=== PATIENT | female | born 1980 | race Caucasian/White ===

== ENCOUNTER → 2019-05-31 15:57 | Outpatient (CLI) | payer OTHER, SELFPAY ==
--- NOTE | ~2019-05-31 | CT_ITS ---
EXAMINATION: CT abdomen pelvis wo con DATE: 05/31/2019 16:39 INDICATION: Right lower quadrant abdominal pain TECHNIQUE: Computed tomography (CT) of the abdomen and pelvis was performed without intravenous contr ast. The dose-length product was 907.79 mGy-cm. Automated exposure control and iterative reconstructi on technique were employed. COMPARISON: CT dated 07/19/2017 FINDINGS: Lung bases are unremarkable. Heart size is normal. No pleural or pericardial effusion. No s ignificant vascular abnormality. No lymphadenopathy. Status post cholecystectomy. The liver, spleen, pancreas, adrenal glands and right kidney are unremar kable. There is a stable 2.2 cm left renal cyst. Nonobstructive bowel gas pattern. No abnormal pelvic masses or fluid collections. Colonic diverticula without evidence for diverticulitis. Small fat-cont aining umbilical hernia. The appendix is not positively visualized. There is no pericecal inflammato ry change to suggest appendicitis. IMPRESSION: 1. No acute abdominal abnormality. Reviewed, dictated and finalized at location A. WARE ENGINEER INTERN
--- NOTE | ~2019-05-31 | XR_ITS ---
EXAMINATION: XR hip RT min 2V DATE: 05/31/2019 16:40 INDICATION: Right lower quadriceps pain. TECHNIQUE: 2 views of right hip were obtained. COMPARISON: None. FINDINGS: Bone alignment is normal. No fracture. There is mild right hip osteoarthritis. Osteitis pub is is noted. IMPRESSION: 1. Mild right hip osteoarthritis. Reviewed, dictated and finalized at location A. YSIS EVALUATOR
== END ==
PROVIDERS: PCP Nurse Practitioner Adult Health; Visit Provider Nurse Practitioner Adult Health
DX: R10.31 Right lower quadrant pain (principal); M16.11 Unilateral primary osteoarthritis, right hip
CPT/HCPCS: 73502; 74176

== ENCOUNTER → 2020-04-28 17:13 | Outpatient (CLI) | payer OTHER, SELFPAY ==
--- NOTE | ~2020-04-28 | MM_ITS ---
EXAMINATION: MM screening tobias BI w surinder HISTORY: Screening TECHNIQUE: Craniocaudal and mediolateral oblique 3-D tomosynthesis images were obtained and synthetic 2-D images were generated. CAD analysis was submitted and interpreted. COMPARISON: Comparison to multiple prior studies sequentially, with oldest reviewed study dated 05/2017. BREAST PARENCHYMAL COMPOSITION: The breasts are heterogeneously dense, which may obscure small masses . FINDINGS: There is no evidence of suspicious mass, calcification, or architectural distortion to sugg est malignancy in either breast. There has been no suspicious interval change. IMPRESSION: 1. No mammographic evidence of malignancy. 2. Recommend routine screening mammography in one year. BI-RADS Category 1: Negative Reviewed, dictated and finalized at location A. PING MACHINE OPERATOR
== END ==
PROVIDERS: PCP Nurse Practitioner Adult Health; Visit Provider Obstetrics & Gynecology
DX: Z12.31 Encounter for screening mammogram for malignant neoplasm of breast (principal)
CPT/HCPCS: 77063; 77067

== ENCOUNTER 2020-06-09 16:34 | Outpatient (CLI) | payer OTHER, SELFPAY ==
--- NOTE | ~2020-06-09 | US_ITS ---
EXAMINATION: US venous doppler LE RT DATE: 06/09/2020 16:58 INDICATION: Right lower limb pain TECHNIQUE: Landry scale images without and with compression and Doppler images of the right lower extre mity veins were obtained. COMPARISON: 07/15/2018 FINDINGS: The right common femoral vein, profunda femoral vein, femoral vein, popliteal vein, peronea l trunk, posterior tibial veins, and greater saphenous vein are patent. IMPRESSION: 1. Patent right lower extremity veins. No evidence of deep venous thrombosis. Reviewed, dictated and finalized at location A. SHELVER
== END 2020-06-09 16:35 | disposition home or self-care (01) ==
PROVIDERS: PCP Nurse Practitioner Adult Health; Visit Provider Nurse Practitioner Adult Health
DX: M79.661 Pain in right lower leg (principal)
CPT/HCPCS: 93971

== ENCOUNTER 2021-08-22 10:50 | Emergency (ER) | payer OTHER, SELFPAY ==
[2021-08-22 10:56] VITALS: BP 139/90; PULSE 128; RESP 18; TEMP 36.4; O2SAT 97
[2021-08-22 11:31] LABS: Basophils Percent Auto 0.2 % (0.2-1.2); Eosinophils Percent Auto 0.3 % (0-4.4); Hemoglobin 14.3 g/dL (12.0-15.0); Immature Granulocyte Absolute 0.04 K/mm3 (0.00-0.031); Immature Granulocyte Percent A 0.4 % (0-0.5); Lymphocytes Absolute Auto 0.45 K/mm3 (0.9-3.2); Lymphocytes Percent Auto 4.3 % (18.3-44.2); Mean Corpuscular HGB Conc 33.3 g/dl (32-36); Mean Corpuscular Hemoglobin 28.7 pg (26-34); Mean Corpuscular Volume 86.2 fl (80-100); Mean Platelet Volume 9.8 fl (7.4-10.4); Monocytes Absolute Auto 0.3 K/mm3 (0.1-0.6); Neutrophils Absolute Auto 9.5 K/mm3 (1.3-6.7); Neutrophils Percent Auto 91.8 % (45.5-73.1); Platelet Count Result 301 k/mm3 (150-375); Red Blood Count 4.99 M/mm3 (4.2-5.4); Red Cell Distribution Width 12.6 % (11.5-14.5); White Blood Count 10.4 K/mm3 (4.5-10.0)
[2021-08-22 11:44] LABS: Alanine Aminotransferase 47 U/L (4-35); Albumin Level 5.2 g/dL (3.5-5.1); Alkaline Phosphatase 83 U/L (38-126); Anion Gap 12 mmol/L (8-16); Aspartate Amino Transferase 49 U/L (14-36); Bilirubin,Total 0.6 mg/dL (0.2-1.3); Blood Urea Nitrogen 16 mg/dL (7-17); Carbon Dioxide 21 mmol/L (22-30); Chloride 104 mmol/L (98-107); Estimated CRCL calculation 88 ml/min; Estimated Glomerular Filt Rate > 60; Glucose 115 mg/dL (65-110); Lipase 43 U/L (23-300); Potassium 3.9 mmol/L (3.4-5.0); Sodium 137 mmol/L (137-145)
[2021-08-22 12:34] VITALS: BP 134/83; PULSE 113; RESP 14; O2SAT 98
[2021-08-22 12:52] LABS: Add Urine Microscopic? YES; Appearance Urine Cloudy (Clear); Bilirubin Urine Negative (Negative); Blood Urine Negative (Negative); Color Urine Yellow (Yellow); Glucose Urine UA Negative (Negative); Ketones Urine 1+ mg/dL (Negative); Leukocyte Esterase Ur Negative LEU/UL (Negative); Mucus Urine Rare /lpf; Nitrate Urine Negative (Negative); Protein Urine Negative (Negative); Specific Grav Ur 1.021 (1.001-1.035); Squamous Epithelial Cell Urine Many /hpf (Few); Urobilinogen Urine Negative mg/dL (<2.0)
[2021-08-22] MEDS: SODIUM CHLORIDE 0.9% IV 1,000 ML 150 ML IV CONT (13:20)
[2021-08-22] MEDS: ONDANSETRON INJ 4 MG/2 ML VIAL IV PUSH ×2 (13:21→17:25)
--- NOTE | 2021-08-22 13:30 | PC.NURSE ---
per NICOLE Abbasi, give normal saline as a bolus.
--- NOTE | 2021-08-22 13:44 | ED.GENADULT ---
HPI - General Adult General Chief complaint: Abdominal Pain Stated complaint: n/v/d Time Seen by Provider: 08/22/21 12:25 History of Present Illness HPI narrative: Patient is a 41-year-old female who presents ER with complaints of vomiting and back pain. She reports back pain began yesterday and is in the mid thoracic region on the right side. It is not aggravated by movement or deep breath. Its not associated's cough or dyspnea. Denies any injury. There is no radiation of the discomfort. No alleviating factors that she is found. She also notes that last night and early this morning began having vomiting. It does not seem to be explicitly associated with the back pain. She has no urinary frequency urgency or dysuria. She denies any epigastric or right upper quadrant abdominal pain. Its not associated with eating and drinking if she has persistent nausea. Related Data Allergies Allergy/AdvReac Type Severity Reaction Status Date / Time No Known Allergies Allergy Verified 08/22/21 12:34 Review of Systems Review of Systems: All systems reviewed & are unremarkable except as noted in HPI and below Constitutional: Constitutional: Denies chills, Denies fever(s) and Denies weakness ENT: Denies nasal congestion and Denies sore throat Cardiovascular: Cardiovascular: Denies chest pain, Denies rapid heart rate and Denies radiating jaw, neck or arm pain Respiratory: Respiratory: Denies cough, Denies dyspnea and Denies wheezing Gastrointestinal: Gastrointestinal: Denies abdominal pain, Denies constipation, Denies diarrhea, Reports nausea and Reports vomiting Genitourinary: Genitourinary: Denies nocturia, Denies dysuria and Denies flank pain Musculoskeletal: Musculoskeletal: Reports back pain, Denies arthralgias and Denies muscle cramps [facility] Past Medical History Medical History (Updated 08/22/21 @ 17:20 by Yuval Abbasi MD) Anxiety Depression Hypertension Surgical History Surgical History (Updated 08/22/21 @ 13:46 by Yuval Abbasi MD) History of cholecystectomy Social History Social History (Updated 08/22/21 @ 13:46 by Yuval Abbasi MD) Smoking status: Never smoker Exam Narrative: GENERAL: Uncomfortable-appearing, obese, and in no acute distress. HEAD: Normocephalic, atraumatic. EYES: PERRL and EOMI. ENT: Mucous membranes moist. CHEST: Clear to auscultation. No respiratory distress. No reproducible chest wall tenderness. HEART: Regular rate and rhythm. Normal peripheral pulses. ABDOMEN: Soft, nontender, nondistended, normal active bowel sounds. No CVA tenderness. Back: No reproducible midline or paraspinal muscular tenderness of the thoracic or lumbar spine. No palpable spasm. EXTREMITIES: Normal range of motion. No edema. SKIN: Warm, dry, no rash. NEURO: Alert and oriented x3. PSYCH: Normal mood and affect. Course Course Emergency Course: Back pain resolved with Toradol. Nausea resolved with Zofran. Patient still has some mild tachycardia. Temperature 99.0. Suspect viral illness causing nausea. Patient may soon develop Vital Signs Vital signs: Vital Signs Temperature 97.5 F L 08/22/21 10:56 Pulse Rate 128 H 08/22/21 10:56 Respiratory Rate 18 08/22/21 10:56 Blood Pressure 139/90 08/22/21 10:56 Pulse Oximetry 97 08/22/21 10:56 Temperature 97.5 F L 08/22/21 10:56 Pulse Rate 114 H 08/22/21 15:19 Respiratory Rate 18 08/22/21 15:19 Blood Pressure 104/70 08/22/21 15:19 Pulse Oximetry 100 08/22/21 15:19 Medical Decision Making Vital Signs Vital Signs: Vital Signs Temperature 97.5 F L 08/22/21 10:56 Pulse Rate 128 H 08/22/21 10:56 Respiratory Rate 18 08/22/21 10:56 Blood Pressure 139/90 08/22/21 10:56 Pulse Oximetry 97 08/22/21 10:56 Temperature 97.5 F L 08/22/21 10:56 Pulse Rate 114 H 08/22/21 15:19 Respiratory Rate 18 08/22/21 15:19 Blood Pressure 104/70 08/22/21 15:19 Pulse Oximetry 100 08/22/21 15:19
[2021-08-22 14:02] VITALS: BP 137/85; PULSE 113; RESP 20; O2SAT 100
[2021-08-22] MEDS: KETOROLAC 30 MG/ML VIAL (*BKC) IV PUSH (14:07)
[2021-08-22 15:19] VITALS: BP 104/70; PULSE 114; RESP 18; O2SAT 100
[2021-08-22 17:20] VITALS: BP 129/79; PULSE 113; RESP 20; O2SAT 100
== END 2021-08-22 17:35 | disposition home or self-care (01) ==
PROVIDERS: Emergency Medicine; Emergency Provider Emergency Medicine; PCP Nurse Practitioner Adult Health
DX: B34.9 Viral infection, unspecified (principal); R11.0 Nausea; I10 Essential (primary) hypertension
CPT/HCPCS: 36415; 80053; 81001; 81025; 83690; 85025; 87086; 87088; 96361; 96374; 96375; 96376; 99284; J1885; J2405; J7030

== ENCOUNTER → 2021-11-06 10:23 | Outpatient (CLI) | payer OTHER, SELFPAY ==
--- NOTE | ~2021-11-06 | MM_ITS ---
EXAMINATION: MM screening tobias BI w surinder HISTORY: Screening TECHNIQUE: Craniocaudal and mediolateral oblique 3-D tomosynthesis images were obtained and synthetic 2-D images were generated. CAD analysis was submitted and interpreted. COMPARISON: Comparison to multiple prior studies sequentially, with oldest reviewed study dated 05/2017. BREAST PARENCHYMAL COMPOSITION: The breasts are extremely dense, which lowers the sensitivity of mamm ography FINDINGS: There is no evidence of suspicious mass, calcification, or architectural distortion to sugg est malignancy in either breast. There has been no suspicious interval change. IMPRESSION: 1. No mammographic evidence of malignancy. 2. Recommend routine screening mammography in one year. BI-RADS Category 1: Negative Reviewed, dictated and finalized at location A.
== END ==
PROVIDERS: PCP Nurse Practitioner Adult Health; Visit Provider Obstetrics & Gynecology
DX: Z12.31 Encounter for screening mammogram for malignant neoplasm of breast (principal)
CPT/HCPCS: 77063; 77067

== ENCOUNTER 2021-12-03 10:59 | Outpatient (CLI) | payer OTHER, SELFPAY ==
--- NOTE | 2021-12-08 18:21 | WPDHOLTEREM ---
Holter/Event Monitor Holter/Event Monitor Date of procedure: 12/08/21 Holter/Event Procedure: 48 Hr Holter Monitor Diagnosis: Palpitations Indications: 41-year-old female with palpitations Image/Tracing Quality: Good Finding: The patient was monitored for 48 hours. The underlying rhythm was sinus with an average heart rate of 86 beats per minute (range 59-162 BPM). There were 14 PVCs and 87 APCs. There was no SVT, atrial fibrillation, heart block, pauses or ventricular tachycardia. The patient had chest tightness and could not catch her breath with fatigue at 5:25 p.m. while cooking dinner at which time she was in sinus tachycardia rate 118 beats per minute. At 8:45 p.m. she had chest and left arm pain, tightness in her throat while watching TV and she was in sinus rhythm rate 82 beats per minute. At 10:35 a.m. the following morning she had chest tightness and her heart was pounding while carrying laundry upstairs at which time she was in sinus rhythm rate 88 beats per minute. She had 1 more diary entry of chest pain when her son startled her awake but she did not include any time on that. Conclusion: Fairly unremarkable Holter monitor with rare PACs and PVCs. The patient's symptoms correlated with sinus rhythm and sinus tachycardia.
== END 2021-12-03 11:00 | disposition home or self-care (01) ==
PROVIDERS: PCP Nurse Practitioner Adult Health; Visit Provider Nurse Practitioner Adult Health
DX: R00.2 Palpitations (principal)
CPT/HCPCS: 93225; 93226

== ENCOUNTER 2022-11-19 07:45 | Emergency (ER) | payer OTHER, SELFPAY ==
[2022-11-19] VITALS (27 sets, daily range): BP systolic 124–136; BP diastolic 70–84; PULSE 82–105; RESP 13–23; O2SAT 97–100
--- NOTE | ~2022-11-19 | XR_ITS ---
Clinical Indication: Chest pain PA and lateral views of the chest: Comparison: 07/18/2017 Findings: The lungs are clear, without evidence of focal consolidation or pleural effusion. Cardiome diastinal silhouette is within normal limits. Bones and soft tissues are unremarkable. Impression: Normal chest. Reviewed, dictated and finalized at location . Impression: Normal chest.
--- NOTE | 2022-11-19 07:48 | ECG_ITS ---
Measurements Intervals [place] Rate: 101 P: 38 DC: 119 QRS: 3 QRSD: 89 T: 14 QT: 329 QTc: 428 Interpretive Statements SINUS TACHYCARDIA WITH SHORT DC INTERVAL BORDERLINE T WAVE ABNORMALITY- ANT/INF LEADS BORDERLINE ECG NO PREVIOUS ECG AVAILABLE FOR COMPARISON Electronically Signed On 11-19-2022 8:23:22 CDT by Claudio Saab D.O.
[2022-11-19 08:14] LABS: Basophils Percent Auto 0.4 % (0.2-1.2); Eosinophils Absolute Auto 0.1 K/mm3 (0-0.3); Eosinophils Percent Auto 1.5 % (0-4.4); Hemoglobin 13.5 g/dL (12.0-15.0); Immature Granulocyte Absolute 0.02 K/mm3 (0.00-0.031); Immature Granulocyte Percent A 0.2 % (0-0.5); Lymphocytes Absolute Auto 1.18 K/mm3 (0.9-3.2); Mean Corpuscular HGB Conc 33.8 g/dl (32-36); Mean Corpuscular Volume 85.8 fl (80-100); Mean Platelet Volume 9.7 fl (7.4-10.4); Monocytes Absolute Auto 0.4 K/mm3 (0.1-0.6); Monocytes Percent Auto 4.4 % (2.6-8.5); Neutrophils Absolute Auto 7.3 K/mm3 (1.3-6.7); Neutrophils Percent Auto 80.5 % (45.5-73.1); Platelet Count Result 311 k/mm3 (150-375); Red Blood Count 4.66 M/mm3 (4.2-5.4); Red Cell Distribution Width 12.4 % (11.5-14.5); White Blood Count 9.1 K/mm3 (4.5-10.0)
[2022-11-19 08:23] LABS: INR 0.9; Prothrombin Time 12.4 Seconds (11.1-14.7)
[2022-11-19 08:24] LABS: Partial Thromboplastin Time 30.8 SECONDS (22.3-36.8)
[2022-11-19 08:42] LABS: Troponin I < 0.012 ng/mL (0.000-0.034)
[2022-11-19] MEDS: ONDANSETRON INJ 4 MG/2 ML VIAL IV PUSH (08:48)
[2022-11-19] MEDS: BELLADONNA ALK/PHENOB ELIX 10 ML, MAG HYDROX/ALUMINUM HYD/SIMETH 30 ML, LIDOCAINE HCL 2... PO (08:48)
[2022-11-19] MEDS: FAMOTIDINE 20 MG TABLET PO (08:48)
[2022-11-19] MEDS: SODIUM CHLORIDE 0.9% IV 2,000 ML 999 ML IV CONT (08:48)
[2022-11-19 09:32] LABS: Alanine Aminotransferase 23 U/L (6-35); Albumin Level 4.3 g/dL (3.5-5.1); Alkaline Phosphatase 63 U/L (38-126); Anion Gap 7 mmol/L (8-16); Aspartate Amino Transferase 25 U/L (14-36); Bilirubin,Total 0.4 mg/dL (0.2-1.3); Blood Urea Nitrogen 14 mg/dL (7-17); Calcium 8.6 mg/dL (8.4-10.2); Carbon Dioxide 25 mmol/L (22-30); Chloride 106 mmol/L (98-107); Estimated CRCL calculation 88 ml/min; Estimated Glomerular Filt Rate > 60; Glucose 94 mg/dL (65-110); Lipase 63 U/L (23-300); Potassium 4.5 mmol/L (3.4-5.0); Sodium 138 mmol/L (137-145)
--- NOTE | 2022-11-19 09:45 | ED.CHESTPAIN ---
HPI - Chest Pain General Chief Complaint: Chest Pain Stated Complaint: Chest pain Time Seen by Provider: 11/19/22 07:53 History of Present Illness HPI narrative: This is a 42-year-old female with history of anxiety depression, presents emergency department complaining of burning substernal chest pain beginning approximately 7 hours prior to arrival. States this is associated with nausea and vomiting twice without blood. She states she has felt pain like this before but this has lasted longer than previous. She denies lightheadedness, loss of consciousness, weakness or numbness. Related Data Home Medications Medication Instructions Recorded Confirmed losartan 25 mg tablet 25 mg PO DAILY 08/24/21 11/09/22 Allergies Allergy/AdvReac Type Severity Reaction Status Date / Time No Known Allergies Allergy Verified 11/19/22 08:43 Review of Systems Review of Systems: CONSTITUTIONAL: Denies fever, chills, or sweats. CARDIOVASCULAR: Substernal chest burning denies palpitations, or edema. RESPIRATORY: Denies cough or dyspnea. GASTROINTESTINAL: Denies abdominal pain, nausea, vomiting, or diarrhea. GENITOURINARY: Denies dysuria or hematuria. SKIN: Denies rash or itching. MUSCULOSKELETAL: Denies back pain, joint pain, or myalgia. NEUROLOGIC: Denies headache, numbness, dizziness, or weakness. PSYCHIATRIC: Denies anxiety or depression. [facility], [facility] Past Medical History Medical History Anxiety Depression Hypertension Thyroid disease Surgical History Surgical History History of cholecystectomy History of orthopedic surgery tibia and fibula repair right leg Family History Family History Father Congestive heart failure Heart disease Hypertension Sibling Alcoholism Social History Social History Smoking status: Never smoker Smoking end date: 05/02/07 Alcohol intake: never Substance use: never Substance use type: does not use Lack of Transportation: No Lack of Food: Never True Current Housing: I Have Housing Concerned About Future Housing: No Difficulty Paying Gas/Electric Bills: No Difficulty Paying for Meds: No Currently Unemployed: No Education: Associate Degree Living arrangements: with family Occupation/Education: occupation Additional occupation/education comments: stay at home mom Gender identity (if verbalized by the patient): Female Sexual Orientation (if Verbalized by the Patient): Straight or Heterosexual Exam Narrative: GENERAL: Well-developed, well-nourished, and in no acute distress. HEAD: Normocephalic, atraumatic. EYES: PERRLA and EOMI. ENT: Nares clear, no rhinorrhea or epistaxis. Mucous membranes moist. Oropharynx without tonsillar hypertrophy exudate or other lesions. NECK: Supple. No adenopathy or masses. No JVD CHEST: Clear to auscultation. No respiratory distress. No wheezes rales or rhonchi HEART: Regular rate and rhythm. No murmur heard. Normal peripheral pulses. ABDOMEN: Soft, nontender, nondistended, normal active bowel sounds. EXTREMITIES: Normal range of motion. No edema. SKIN: Warm, dry, no rash. NEURO: No focal deficits. Alert and oriented x3. PSYCH: Normal mood and affect. Course Course Emergency Course: 09:45 - On reevaluation, the patient states her pain and nausea is improved. Initial troponin negative, heart score 1. My suspicion for ACS is low at this time. Chest x-ray unremarkable. Chemistries unremarkable. CBC unremarkable. test pending. 10:45 - test negative. Will discharge with an oral PPI and recommendation for primary care follow-up. Discussed return and emergency precautions including signs/symptoms of ACS and respiratory distress. The patient voiced understanding and is com
[2022-11-19 10:40] LABS: Beta HCG Quantitative < 2.39 mIU/ML
== END 2022-11-19 11:35 | disposition home or self-care (01) ==
PROVIDERS: Emergency Provider Preventive Medicine Aerospace Medicine; PCP Family Medicine
DX: R07.89 Other chest pain (principal); I10 Essential (primary) hypertension; E07.9 Disorder of thyroid, unspecified; Z87.891 Personal history of nicotine dependence; Z90.49 Acquired absence of other specified parts of digestive tract; R00.0 Tachycardia, unspecified; R94.31 Abnormal electrocardiogram [ECG] [EKG]
CPT/HCPCS: 36415; 71046; 80053; 83690; 84484; 84702; 85025; 85610; 85730; 93005; 96361; 96374; 99284; A9270; J2405; J7030

== ENCOUNTER 2023-02-02 08:37 | Outpatient (CLI) | payer OTHER, SELFPAY ==
--- NOTE | ~2023-02-02 | XR_ITS ---
XR knee LT 3V DATE: 02/02/2023 09:00 INDICATION: Left knee pain TECHNIQUE: [place] and standing AP and lateral views COMPARISON: None FINDINGS: No fracture or dislocation or joint effusion. Joint spaces are well preserved. No radiopaqu e intra-articular loose body or chondrocalcinosis. No periosteal reaction or bone destruction. IMPRESSION: Negative Reviewed, dictated and finalized at location B. IMPRESSION: Negative
== END 2023-02-02 08:38 ==
PROVIDERS: PCP Physician Assistant; Visit Provider Physician Assistant
DX: M25.562 Pain in left knee (principal)
CPT/HCPCS: 73562

== ENCOUNTER → 2023-02-07 11:19 | Outpatient (CLI) | payer OTHER, SELFPAY ==
--- NOTE | ~2023-02-07 | MM_ITS ---
EXAMINATION: MM screening tobias BI w surinder HISTORY: Screening mammogram TECHNIQUE: Craniocaudal and mediolateral oblique 3-D tomosynthesis images were obtained and synthetic 2-D images were generated. CAD analysis was submitted and interpreted. COMPARISON: 11/06/2021, 04/28/2020 bilateral screening mammogram examinations 02/16/2019 diagnostic right mammogram and limited right breast ultrasound examination BREAST PARENCHYMAL COMPOSITION: The breasts are heterogeneously dense, which may obscure small masses . FINDINGS: There is no evidence of suspicious mass, calcification, or architectural distortion to sugg est malignancy in either breast. There has been no suspicious interval change. IMPRESSION: 1. No mammographic evidence of malignancy. 2. Recommend routine screening mammography in one year. BI-RADS Category 1: Negative Reviewed, dictated and finalized at location A.
== END ==
PROVIDERS: PCP Physician Assistant; Visit Provider Obstetrics & Gynecology
DX: Z12.31 Encounter for screening mammogram for malignant neoplasm of breast (principal)
CPT/HCPCS: 77063; 77067

== ENCOUNTER 2023-03-07 10:06 | Outpatient (CLI) | payer OTHER, SELFPAY ==
--- NOTE | ~2023-03-07 | US_ITS ---
EXAMINATION: US soft tissue LE DATE: 03/08/2023 07:08 INDICATION: Left knee pain TECHNIQUE: Multiple grayscale and Doppler ultrasound images of the posterior left knee were obtained. COMPARISON: None FINDINGS/IMPRESSION: No Eugene's cyst or other abnormal masses or fluid collections identified at the posterior left knee. Reviewed, dictated and finalized at location A. R SHOVEL MECHANIC
== END 2023-03-07 10:07 | disposition home or self-care (01) ==
PROVIDERS: PCP Physician Assistant; Visit Provider Nurse Practitioner Family
DX: M25.562 Pain in left knee (principal)
CPT/HCPCS: 76882

== ENCOUNTER 2023-03-19 10:09 | Outpatient (CLI) | payer OTHER, SELFPAY ==
--- NOTE | ~2023-03-19 | MR_ITS ---
EXAMINATION: MR knee LT wo con DATE: 03/19/2023 11:16 INDICATION: initial posterior left knee pain x6mos becoming generalized TECHNIQUE: Magnetic resonance imaging (MRI) of the left knee was performed without intravenous contra st. Sequences included axial PD-weighted FS FSE, coronal PD-weighted FSE and PD-weighted FS FSE, sagi ttal PD-weighted FSE, and sagittal T2-weighted FS FSE. COMPARISON: X-ray left knee 02/02/2023. FINDINGS: Medial compartment: Meniscus intact. Mild diffuse cartilage thinning. Lateral compartment: Meniscus intact. Mild diffuse cartilage thinning. Patellofemoral compartment: Full-thickness cartilage fissure along the median facet. Retinacula intact. Ligaments and tendons: The ACL, PCL, MCL, and LCL are intact. Remaining flexor and extensor tendons are intact. Fluid: No significant fluid collection. Osseous/other: No suspicious focal or diffuse marrow signal. IMPRESSION: Full-thickness cartilage fissure along the median facet. Mild diffuse cartilage thinning in the medial and lateral compartments Reviewed, dictated and finalized at location K. LATORY COORDINATOR
== END 2023-03-19 10:10 ==
PROVIDERS: PCP Physician Assistant; Visit Provider Nurse Practitioner Family
DX: M25.562 Pain in left knee (principal); G89.29 Other chronic pain
CPT/HCPCS: 73721

== ENCOUNTER 2023-04-21 21:41 | Observation (INO) | payer OTHER, SELFPAY ==
--- NOTE | ~2023-04-21 | XR_ITS ---
EXAMINATION: XR chest 2V Exam Date/Time: 04/21/2023 22:40 COLLECTION SYSTEMS TECHNICIAN HISTORY: PALPITATIONS, LEFT SIDED NECK AND SHOULDER PAIN Comparison: 11/19/2022. RESULT: Lines, tubes, and devices: None. Lungs and pleura: Clear. Cardiomediastinal silhouette: Stable. Other: No acute osseous or upper abdominal finding. IMPRESSION: No acute cardiopulmonary process. Reviewed, dictated and finalized at location K. ECTION SYSTEMS TECHNICIAN
[2023-04-21 21:45] VITALS: BP 144/97; PULSE 99; RESP 15; TEMP 36.6; O2SAT 100
--- NOTE | 2023-04-21 21:48 | ECG_ITS ---
Measurements Intervals [place] Rate: 182 P: MI: 0 QRS: 12 QRSD: 92 T: -3 QT: 240 QTc: 418 Interpretive Statements ATRIAL FIBRILLATION WITH RAPID VENTRICULAR RESPONSE NONSPECIFIC ST & T-WAVE ABNORMALITY ABNORMAL RHYTHM ECG COMPARED TO ECG 11/19/2022 07:51:55 ATRIAL FIBRILLATION REPLACES SINUS RHYTHM Electronically Signed On 04-22-2023 15:03:46 MANAGING PARTNER by Ziggy Rosenthal M.D.
[2023-04-21] MEDS: SODIUM CHLORIDE 0.9% IV 1,000 ML 999 ML IV CONT (22:06)
[2023-04-21] MEDS: dilTIAZem HCl INJ 25 MG/5 ML VIAL 10 MG IV PUSH ×2 (22:06→22:15)
[2023-04-21] MEDS: ASPIRIN 81 MG CHEWABLE TABLET 324 MG PO (22:06)
--- NOTE | 2023-04-21 22:10 | ED.ARRPALP ---
HPI - Arrhythmia/Palpitations General Chief Complaint: Arrhythmia/Palpitations Stated Complaint: palpations Time Seen by Provider: 04/21/23 22:00 History of Present Illness HPI narrative: [age] old female presenting to the emergency department for evaluation of rapid heart rate. Patient does have a history of heart palpitations that are typically short lasting. Patient has had follow-up with Cardiology and has had a Holter monitor which found no abnormalities. Patient states that approximately 1 hour prior to arrival patient had onset rapid heart rate. Patient reports some radiation of pain to her left shoulder. Related Data Home Medications Medication Instructions Recorded Confirmed losartan 25 mg tablet 25 mg PO DAILY 08/24/21 04/22/23 cholecalciferol (vitamin D3) 50 50 mcg PO DAILY 12/23/22 04/22/23 mcg (2,000 unit) capsule clonazepam 0.5 mg tablet 0.25 mg PO QHS PRN Anxiety 12/23/22 04/22/23 mecobalamin (vitamin B12) 500 mcg 500 mcg PO DAILY 12/23/22 04/22/23 chewable tablet omega-3 fatty acids 500 mg capsule 500 mg PO DAILY 12/23/22 04/22/23 Allergies Allergy/AdvReac Type Severity Reaction Status Date / Time No Known Allergies Allergy Verified 02/22/23 10:10 Review of Systems Review of Systems: All systems reviewed & are unremarkable except as noted in HPI and below PMFSH Past Medical History Medical History (Updated 04/22/23 @ 04:54 by Abdullahi Altman MD) Anxiety Arthritis Eugene's cyst of knee Depression History of endometrial biopsy 12/09/2022 Hypertension Migraine Thyroid disease Surgical History Surgical History History of cholecystectomy History of orthopedic surgery tibia and fibula repair right leg Family History Family History Father Congestive heart failure Heart disease Hypertension Cerebrovascular accident Sibling Alcoholism Grandparent Diabetes mellitus Alcoholism Social History Social History Smoking status: Never smoker Second hand tobacco smoke exposure: No Smoking end date: 05/02/07 Alcohol intake: never Substance use: never Substance use type: does not use Lack of Transportation: No Lack of Food: Never True Current Housing: I Have Housing Concerned About Future Housing: No Difficulty Paying Gas/Electric Bills: No Difficulty Paying for Meds: No Currently Unemployed: No Education: Associate Degree Living arrangements: with family Occupation/Education: occupation Additional occupation/education comments: stay at home mom Gender identity (if verbalized by the patient): Female Sexual Orientation (if Verbalized by the Patient): Straight or Heterosexual Exam Narrative: APPEARANCE: Well appearing, no pain, no distress, well-nourished. HEAD: normocephalic, atraumatic. EYES: PERRLA/EOMI, conjunctivae clear. NOSE: Normal no drainage EARS:TMS clear with good light reflex. THROAT: Pharynx clear, no exudate. NECK: Supple. No adenopathy, no masses. RESPIRATORY: Airway patent, respirations nonlabored. Clear to auscultation bilaterally, no rales, rhonchi, wheezing. CARDIOVASCULAR: AFib with RVR ABDOMINAL: Soft, nontender, nondistended, normal bowel sounds MUSCULOSKELETAL: Moves all extremities. Strength/ROM intact, No edema, No calf tenderness. NEURO: Alert. Cranial nerves II through XII intact. grossly intact SKIN: Warm, dry. Normal Color Course Course Emergency Course: 42-year-old female presenting to the emergency department for evaluation for tachycardia. Patient was an AFib with RVR with heart rate up to 215 on initial presentation. Patient's heart rate did improve with Cardizem bolus and infusion. No significant electrolyte abnormalities. Patient reported that her chest pain was improving has her heart rate improved. Chest x-ray showed no acute cardio
[2023-04-21 22:13] LABS: Basophils Absolute Auto 0.1 K/mm3 (0.0-0.1); Basophils Percent Auto 0.5 % (0.2-1.2); Eosinophils Absolute Auto 0.4 K/mm3 (0-0.3); Eosinophils Percent Auto 4.1 % (0-4.4); Hematocrit 41.2 % (37.0-47.0); Hemoglobin 13.3 g/dL (12.0-15.0); Immature Granulocyte Absolute 0.03 K/mm3 (0.00-0.031); Immature Granulocyte Percent A 0.3 % (0-0.5); Lymphocytes Absolute Auto 2.83 K/mm3 (0.9-3.2); Lymphocytes Percent Auto 30.6 % (18.3-44.2); Mean Corpuscular HGB Conc 32.3 g/dl (32-36); Mean Corpuscular Hemoglobin 28.2 pg (26-34); Mean Corpuscular Volume 87.5 fl (80-100); Mean Platelet Volume 9.7 fl (7.4-10.4); Monocytes Absolute Auto 0.6 K/mm3 (0.1-0.6); Monocytes Percent Auto 6.4 % (2.6-8.5); Neutrophils Absolute Auto 5.4 K/mm3 (1.3-6.7); Neutrophils Percent Auto 58.1 % (45.5-73.1); Platelet Count Result 378 k/mm3 (150-375); Red Blood Count 4.71 M/mm3 (4.2-5.4); Red Cell Distribution Width 12.9 % (11.5-14.5); White Blood Count 9.2 K/mm3 (4.5-10.0)
[2023-04-21 22:15] VITALS: BP 139/88; BP 156/78; PULSE 171; PULSE 175; RESP 20; O2SAT 100
[2023-04-21] MEDS: dilTIAZem 100 MG/100 ML 100 MG/100 ML BAG IV CONT (22:15)
[2023-04-21 22:24] LABS: Alanine Aminotransferase 33 U/L (6-35); Albumin Level 4.6 g/dL (3.5-5.1); Alkaline Phosphatase 70 U/L (38-126); Anion Gap 9 mmol/L (8-16); Aspartate Amino Transferase 38 U/L (14-36); Bilirubin,Total 0.3 mg/dL (0.2-1.3); Blood Urea Nitrogen 16 mg/dL (7-17); Calcium 9.4 mg/dL (8.4-10.2); Carbon Dioxide 23 mmol/L (22-30); Chloride 107 mmol/L (98-107); Estimated CRCL calculation 86 ml/min; Estimated Glomerular Filt Rate > 60; Glucose 137 mg/dL (65-110); Lipase 155 U/L (23-300); Potassium 3.6 mmol/L (3.4-5.0); Sodium 139 mmol/L (137-145)
[2023-04-21 22:25] LABS: INR 0.9; Prothrombin Time 11.9 Seconds (11.1-14.7)
[2023-04-21 22:35] LABS: Troponin I < 0.012 ng/mL (0.000-0.034)
[2023-04-21 22:36] VITALS: BP 156/78; BP 160/82; PULSE 180; PULSE 186; RESP 23; O2SAT 100
[2023-04-21 23:06] VITALS: BP 135/98; PULSE 194
[2023-04-21 23:13] VITALS: PULSE 172
[2023-04-21 23:14] VITALS: BP 135/98; PULSE 176; RESP 14; TEMP 36.3; O2SAT 100
[2023-04-21 23:19] LABS: Magnesium 2.1 mg/dL (1.6-2.3)
[2023-04-21] MEDS: SODIUM CHLORIDE 0.9% IV 1,000 ML 125 ML IV CONT (23:58)
[2023-04-22] VITALS (20 sets, daily range): BP systolic 100–138; BP diastolic 47–81; PULSE 73–142; RESP 15–20; TEMP 36.2–36.9; O2SAT 98–100; BMI 36.1
--- NOTE | 2023-04-22 00:22 | PC.NURSE ---
Upon transporting patient to IMU. Patients heart rate dropped down to 113 via portable site monitor. Notified EDP Dr. Altman and IMU nurse Cheri.
[2023-04-22] MEDS: dilTIAZem HCl INJ 25 MG/5 ML VIAL 20 MG IV PUSH (01:15)
--- NOTE | 2023-04-22 01:25 | ADMGEN ---
This patient, Veronique Barnes, was admitted to IMU Room 232-01. Patient/family oriented to hospital policies and general routines including ID bracelet, bed and alarms, visiting hours, pain management, procedures, bathroom and other care routines, personal items, smoking policy, room service/diet, and visiting hours. Information on how to activate the Rapid Response Team has been discussed. Patient/Family are encouraged to report perceived risks to care and to ask questions if they do not understand what they are told or what they should do.
[2023-04-22] MEDS: dilTIAZem 100 MG/100 ML 100 MG/100 ML BAG 15 MG IV CONT (02:01)
[2023-04-22 05:01] LABS: Troponin I < 0.012 ng/mL (0.000-0.034)
[2023-04-22 05:02] LABS: Troponin I < 0.012 ng/mL (0.000-0.034)
[2023-04-22] MEDS: SODIUM CHLORIDE 0.9% IV 1,000 ML 125 ML IV CONT (06:49)
--- NOTE | 2023-04-22 07:41 | PM.IMHP ---
H&P: HPI History of Present Illness Date/Time: 04/22/23 07:41 Chief Complaint: Palpitation Narrative: 42 years old lady with history of hypertension, anxiety, present ED with a chief complaint of palpitation. Patient had history of palpitation, previous Holter study shows no abnormality. Patient started to have palpitation yesterday evening again. Patient also has some chest pain associated with palpitation radiating to shoulder. Patient came to ED for evaluation. In the ED, patient was found have AFib RVR. Heart rate about 215 on arrival appear. I read EKG, eKG showed AFib RVR. I also reviewed the labs,, troponin negative, total cholesterol 208, LDL 132. Patient denies fever, chills, headache, focal weakness, and pain, nausea vomiting diarrhea dysuria. Patient received Cardizem drip, heart rate controlled, we admit patient for further evaluation and management Review of Systems Review of Systems: RS negative except above PMFSH Past Medical History Medical History (Updated 04/22/23 @ 07:51 by Jhoan Shen MD) Anxiety Arthritis Eugene's cyst of knee Depression History of endometrial biopsy 12/09/2022 Hypertension Migraine Thyroid disease Surgical History Surgical History History of cholecystectomy History of orthopedic surgery tibia and fibula repair right leg Family History Family History Father Congestive heart failure Heart disease Hypertension Cerebrovascular accident Sibling Alcoholism Grandparent Diabetes mellitus Alcoholism Social History Social History Smoking status: Never smoker Second hand tobacco smoke exposure: No Smoking end date: 05/02/07 Alcohol intake: never Substance use: never Substance use type: does not use Do You Feel Safe in your Home?: Yes Lack of Transportation: No Lack of Food: Never True Current Housing: I Have Housing Concerned About Future Housing: No Difficulty Paying Gas/Electric Bills: No Difficulty Paying for Meds: No Currently Unemployed: No Education: High School Diploma/GED Difficulty w/ Childcare or Family Care: No Living arrangements: with family Occupation/Education: occupation Additional occupation/education comments: stay at home mom Gender identity (if verbalized by the patient): Female Sexual Orientation (if Verbalized by the Patient): Straight or Heterosexual Spiritual care concerns: No Meds Home Medications and Allergies Home Medications Medication Instructions Recorded Confirmed Type losartan 25 mg tablet 25 mg PO DAILY 08/24/21 04/22/23 History cholecalciferol (vitamin D3) 50 50 mcg PO DAILY 12/23/22 04/22/23 History mcg (2,000 unit) capsule mecobalamin (vitamin B12) 500 mcg 500 mcg PO DAILY 12/23/22 04/22/23 History chewable tablet omega-3 fatty acids 500 mg capsule 500 mg PO DAILY 12/23/22 04/22/23 History Allergies Allergy/AdvReac Type Severity Reaction Status Date / Time No Known Allergies Allergy Verified 02/22/23 10:10 Vital Signs Vital Signs - 24 hr 04/21/23 21:45 04/21/23 22:15 04/21/23 22:36 Temperature 97.8 F Pulse Rate 99 171 H 180 H Respiratory Rate 15 Blood Pressure 144/97 H 139/88 156/78 H Pulse Oximetry 100 Oxygen Delivery Room Air 04/21/23 22:15 04/21/23 22:36 04/21/23 23:06 Temperature Pulse Rate 175 H 186 H 194 H Respiratory Rate 20 23 H Blood Pressure 156/78 H 160/82 H 135/98 H Pulse Oximetry 100 100 Oxygen Delivery 04/21/23 23:13 04/21/23 23:14 04/22/23 00:02 Temperature 97.4 F L Pulse Rate 172 H 176 H 142 H Respiratory Rate 14 20 Blood Pressure 135/98 H 117/81 Pulse Oximetry 100 98 Oxygen Delivery 04/22/23 02:01 04/22/23 00:20 04/22/23 02:00 Temperature 97.1 F L Pulse Rate 132 H 134 H 132 H Respiratory Rate 16 16 Blood Pressure 131/7
[2023-04-22] MEDS: CYANOCOBALAMIN 500 MCG TABLET PO (10:48)
[2023-04-22] MEDS: CHOLECALCIFEROL 1,000 UNITS TABLET 2000 UNITS PO (10:48)
[2023-04-22] MEDS: ACETAMINOPHEN 325 MG TABLET 650 MG PO ×2 (10:48→16:04)
[2023-04-22] MEDS: ATORVASTATIN 40 MG TABLET PO (10:48)
[2023-04-22] MEDS: ENOXAPARIN 40 MG/0.4 ML SYRINGE SUB-Q (11:00)
--- NOTE | 2023-04-22 11:55 | PM.CNCAR ---
Assessment and Plan Assessment and plan (1) New onset a-fib: Code(s): I48.91 - Unspecified atrial fibrillation Status: Acute (2) Atrial fibrillation with RVR: Code(s): I48.91 - Unspecified atrial fibrillation Status: Acute Plan This is a 42-year-old lady who appears to have lone atrial fibrillation she has had extensive noninvasive workup including echoes and cardiac MRIs as well as nuclear stress test with no evidence of structural or ischemic heart disease. She has had intermittent palpitations for a number of years and now has the diagnosis of atrial fibrillation established. Her heart rate has been very well controlled with diltiazem but she persistent atrial fib at this time. I would like to recommend a cardioversion procedure to restore sinus rhythm at we after which I would start her on beta-celio and apixaban treatment. Her chads Vasc score is 2 and so she should be anticoagulated. Hopefully she will be stable and feel well after cardioversion at which time she could probably be discharged later this evening. She has a follow-up appointment to see my partner, Dr. Reid next month Ziggy Rosenthal MD [facility] History of Present Illness History of Present Illness Consult date/time: 04/22/23 11:55 Reason For Visit: Afib with RVR Narrative: This is a 42-year-old woman I am seeing at the request of the hospitalist for assistance with the management and evaluation of atrial fibrillation. The patient is known to my partner, Dr. Reid for a number of years with office follow-up with complaints of palpitations. In the past on a couple of occasions there was suspicion that she might have atrial fibrillation because of information from her Apple watch but that has never been documented. In any event she has been known in the past to have PVCs but no other arrhythmias. The patient last night noted the onset of irregular tachycardia and palpitations which is a symptom she has had off and on again for a number of years but instead of being transient it sustained. She came to the emergency department where she was in atrial fib with a rapid ventricular response and was otherwise hemodynamically stable. She was complaining of some chest pain as well. She started on intravenous diltiazem which of course controlled her heart rhythm her heart rate is now in the 80s and 90s although she still is in atrial fibrillation. She at this time offers no other complaints and is comfortable. Over the last couple of years since she has seen a my partner in consultation she has had a unremarkable echocardiogram performed, negative stress test for evidence of coronary disease as well as a negative cardiac MRI. She was last seen in the office for follow-up in December of this year which time she was stable. She takes losartan for hypertension as well. In the past to treat her a palpitation she had been placed on some metoprolol which she says she had a hard time tolerating because of the insomnia. Review of Systems Constitutional: Constitutional: Reports no additional constitutional complaints Eyes: Eyes: Reports no additional eye complaints ENT: Reports system reviewed and no additional complaints, except as documented Cardiovascular: Cardiovascular: Reports as per HPI Respiratory: Respiratory: Reports no additional respiratory complaints Gastrointestinal: Gastrointestinal: Reports no additional gastrointestinal complaints Musculoskeletal: Musculoskeletal: Reports no additional musculoskeletal complaints Integumentary/Breasts: Skin/Breast: Reports system reviewed and no additional complaints, except as docu Neurologic: Reports system reviewed and no additional complaints, except as documented Endocrine: Endocrine: Reports no additional endocrine complaints Hematologic/Lymphatic: Hematologic/Lymphatic: Reports no additional hematologic/lymphatic complaints Allergic/Immunologic: Allergic/Immunologic: Reports no heaven
--- NOTE | 2023-04-22 12:20 | WPDMODSED ---
Moderate Sedation Note-Pt Data Patient Data Diagnosis: New onset atrial fibrillation Present Complaint: palpitations Procedure to be performed/Plan: DC cardioversion Allergies Allergy/AdvReac Type Severity Reaction Status Date / Time No Known Allergies Allergy Verified 02/22/23 10:10 Home Medications Medication Instructions Recorded Confirmed Type losartan 25 mg tablet 25 mg PO DAILY 08/24/21 04/22/23 History cholecalciferol (vitamin D3) 50 50 mcg PO DAILY 12/23/22 04/22/23 History mcg (2,000 unit) capsule mecobalamin (vitamin B12) 500 mcg 500 mcg PO DAILY 12/23/22 04/22/23 History chewable tablet omega-3 fatty acids 500 mg capsule 500 mg PO DAILY 12/23/22 04/22/23 History Current Medications: Active Medications Acetaminophen (Acetaminophen 325 Mg Tablet) 650 mg PO Q4H PRN PRN Reason: Mild Pain (1-3) or Fever Last Admin: 04/22/23 10:48 Dose: 650 mg Apixaban (Apixaban 5 Mg Tablet) 5 mg PO Q12HR [facility] Atorvastatin Calcium (Atorvastatin 40 Mg Tablet) 40 mg PO DAILY [facility] Last Admin: 04/22/23 10:48 Dose: 40 mg Cyanocobalamin (Cyanocobalamin 500 Mcg Tablet) 500 mcg PO DAILY [facility] Last Admin: 04/22/23 10:48 Dose: 500 mcg Sodium Chloride (Normal Saline Iv) 1,000 mls @ 125 mls/hr IV CONT .Q8H [facility] Last Admin: 04/22/23 06:49 Dose: 125 mls/hr Diltiazem HCl (Cardizem 100 Mg/100 Ml) 100 mg in 100 mls @ 15 mls/hr IV CONT .Q6H40M [facility] Last Admin: 04/22/23 02:01 Dose: 15 mg/hr, 15 mls/hr Ondansetron HCl (Ondansetron Inj 4 Mg/2 Ml Vial) 4 mg IV PUSH Q4H PRN PRN Reason: Nausea Perflutren Lipid Microsphere (Perflutren Lipid Microspheres 1.5 Ml Vial Diluted To 10 Ml Total Volume) 0 ml IV PUSH ONCE PRN; Protocol PRN Reason: adequate visualization Stop: 04/25/23 08:01 Vitamin D (Cholecalciferol 1,000 Units Tablet) 2,000 units PO DAILY [facility] Last Admin: 04/22/23 10:48 Dose: 2,000 units Sedation/Anesthesia: No previous sedation/anesthesia problems (including family history). [facility] Past Medical History Medical History (Updated 04/22/23 @ 07:51 by Jhoan Shen MD) Anxiety Arthritis Eugene's cyst of knee Depression History of endometrial biopsy 12/09/2022 Hypertension Migraine Thyroid disease Surgical History Surgical History History of cholecystectomy History of orthopedic surgery tibia and fibula repair right leg Family History Family History Father Congestive heart failure Heart disease Hypertension Cerebrovascular accident Sibling Alcoholism Grandparent Diabetes mellitus Alcoholism Social History Social History Smoking status: Never smoker Second hand tobacco smoke exposure: No Smoking end date: 05/02/07 Alcohol intake: never Substance use: never Substance use type: does not use Do You Feel Safe in your Home?: Yes Lack of Transportation: No Lack of Food: Never True Current Housing: I Have Housing Concerned About Future Housing: No Difficulty Paying Gas/Electric Bills: No Difficulty Paying for Meds: No Currently Unemployed: No Education: High School Diploma/GED Difficulty w/ Childcare or Family Care: No Living arrangements: with family Occupation/Education: occupation Additional occupation/education comments: stay at home mom Gender identity (if verbalized by the patient): Female Sexual Orientation (if Verbalized by the Patient): Straight or Heterosexual Spiritual care concerns: No Mod Sed Physical Exam Physical Exam Pre Procedural Exam: Normal: Throat, Airway, Lungs, Heart Size, Neuro Exam and Extremities and Variation: Appearance ( pleasant overweight white female no distress), Heart Rate and Heart Rhythm ( irregularly irregular) Hours since solid foods: 12 Hours since liquid intake: 12 Mallampati Classification: class II Internal Medicine - PN: Obj Da Vit
--- NOTE | 2023-04-22 12:37 | ECG_ITS ---
Measurements Intervals [place] Rate: 75 P: 15 OK: 131 QRS: 33 QRSD: 95 T: 5 QT: 407 QTc: 456 Interpretive Statements SINUS RHYTHM NONSPECIFIC T-WAVE ABNORMALITY BORDERLINE ECG COMPARED TO ECG 04/21/2023 21:53:47 SINUS RHYTHM REPLACES ATRIAL FIBRILLATION Electronically Signed On 04-22-2023 15:23:33 MATERIAL SPECIALIST by Ziggy Rosenthal M.D.
--- NOTE | 2023-04-22 12:43 | WPDCARDPROC ---
Cardiac Cath Procedure Note Date of procedure:: 04/22/23 Performing physician:: Ziggy Rosenthal MD Indication:: new onset persistent atrial fibrillation Brief clinical history:: this is a 42-year-old lady with history of palpitations for several years. Atrial fib has previously been suspected but not confirmed. She presented to the emergency room last evening with persistent palpitations AFib with very rapid ventricular response. She has been given diltiazem to control her heart rate. Previous workup for structural and ischemic heart disease including echo, cardiac MRI stress testing have been negative. An attempt at restoring sinus rhythm electrically has now been recommend Procedure Procedure performed:: DC cardioversion Sedation/Medication given:: intravenous propofol total dosage of 80 mg Estimated blood loss:: none Procedure note:: patient was brought to the cardiac tin can laborer holding area where defibrillator patches were placed in the AP position. She was in the supine position with IV access in the left upper extremity. She was then sedated with id of boluses of propofol a total dosage of 80 mg by provided excellent sedation. She was then counter shocked in a synchronized fashion with 200 joules x1 shock which restored normal sinus rhythm. Findings:: As above Conclusion:: successful DC cardioversion terminating atrial fibrillation restoring sinus rhythm using 200 joules x1 shock patient is now being treated with metoprolol and apixaban. Ziggy Rosenthal MD [facility]
--- NOTE | 2023-04-22 15:52 | PM.DS ---
DS: Admitting Diagnosis Discharge Date 04/22/23 Admitting Diagnosis New onset AFib RVR Hypertension Obesity Possible MO Hyperlipidemia DS: Discharge Diagnosis Discharge Diagnosis (1) New onset a-fib: Code(s): I48.91 - Unspecified atrial fibrillation Status: Acute (2) Atrial fibrillation with RVR: Code(s): I48.91 - Unspecified atrial fibrillation Status: Acute (3) Hypertension: Code(s): I10 - Essential (primary) hypertension Status: Acute (4) Hyperlipidemia: Code(s): E78.5 - Hyperlipidemia, unspecified Status: Acute (5) Obesity (BMI 30-39.9): Code(s): E66.9 - Obesity, unspecified Status: Acute DS: Summary Hospital Course Hospital Course: 42 years old lady with history of hypertension, anxiety, present ED with a chief complaint of palpitation.? Patient had history of palpitation, previous Holter study shows no abnormality.? Patient started to have palpitation yesterday evening again.? Patient also has some chest pain associated with palpitation radiating to shoulder.? Patient came to ED for evaluation.? In the ED, patient was found have AFib RVR.? Heart rate about 215 on arrival appear.? I read EKG, eKG showed AFib RVR.? I also reviewed the labs,, troponin negative, total cholesterol 208, LDL 132.? Patient denies fever, chills, headache, focal weakness, and pain, nausea vomiting diarrhea dysuria.? Patient received Cardizem drip, heart rate controlled, we admit patient for further evaluation and management The following med issues have been addressed during hospitalization New onset AFib RVR Patient has intermittent palpitation, patient was found have AFib RVR upon arrival in the ED EKG showed AFib RVR, heart rate 182, nonspecific ST-T changes Received Cardizem drip, heart rate is controlled TSH within normal limit, chest x-ray shows no acute cardiopulmonary issues Follow echocardiogram monitoring coordinator I have discussed the case with biological sciences instructor, biological sciences instructor plans electrocardioversion today Consult biological sciences instructor for evaluation treatment Patient is successfully cardioverted, chronic patient has sinus rhythm, no applications Start Eliquis 5 mg b.i.d. p.o. metoprolol succinate 50 mg daily p.o. per biological sciences instructor recommendation Chest pain No history of CAD Troponin negative EKG shows AFib no specific ST-T changes Likely related to AFib RVR, patient has hyperlipidemia, obesity, risk of coronary artery disease Start aspirin 325 mg once, aspirin 81 mg daily p.o., Lipitor 40 mg daily p.o. Consult cardiology for evaluation treatment No further workup of cardiac ischemia per biological sciences instructor Hyperlipidemia total cholesterol 208, LDL 132. Start Lipitor 40 mg daily p.o. Hypertension Hold losartan 25 mg daily p.o., blood pressure on lower side on Cardizem drip Obesity BMI 36. Advanced patient lifestyle change, exercise Risk of [place] Patient snores in the night Patient need sleeping study of outpatient, referral per PCP I have discussed patient about necessity of sleeping study because that can be a risk factor of AFib Time Spent with Patient Time attestation: Total time spent providing and/or coordinating discharge services: Exam Narrative: GENERAL: Pleasant, in no acute distress. Well-nourished. - EYES: EOMI. Anicteric. - HENT: Moist mucous membranes. - LUNGS: Clear to auscultation bilaterally, no wheezing, rhonchi, or rales. - CARDIOVASCULAR: Irregular irregular rhythm,. No murmur. No JVD. - ABDOMEN: Soft, non-tender and non-distended. No palpable masses. - EXTREMITIES: No edema. Peripheral pulses 2+. Non-tender. - NEUROLOGIC: No focal neurological deficits. CN II-XII grossly intact. - PSYCHIATRIC: Awake, Alert and oriented x 3. Appropriate mood and affect. - SKIN: No rashes or lesions. Warm. - LYMPH: No cervical lymphadenopathy. DS: Data Data Completed and Pending Labs on day of discharge: Labs from last 24 hours 04/22/2304/22
[2023-04-22] MEDS: METOPROLOL SUCCINATE EXT REL 50 MG TABCR PO (16:03)
[2023-04-22 17:05] LABS: Amphetamine Screen Urine Negative (Negative); Barbiturate Screen Urine Negative (Negative); Benzodiazepines Screen Urine Negative (Negative); Cannabinoid Screen Urine Negative (Negative); Cocaine Screen Urine Negative (Negative); Methadone Screen Urine Negative (Negative); Opiate Screen Urine Negative (Negative); Phencyclidine Screen Urine Negative (Negative)
== END 2023-04-22 17:44 | disposition home or self-care (01) ==
LOC: ANHED 22:12 → ANHIMU 04-22 06:16
PROVIDERS: Specialist; Admitting Provider Internal Medicine; Emergency Provider Emergency Medicine; PCP Physician Assistant; Visit Provider Hospitalist
PROC: 5A2204Z Restoration of Cardiac Rhythm, Single (ICD-10-PCS; principal; 2023-04-22 12:30)
DX: I48.91 Unspecified atrial fibrillation (principal); F41.9 Anxiety disorder, unspecified; F32.A Depression, unspecified; E78.5 Hyperlipidemia, unspecified; I10 Essential (primary) hypertension; E66.9 Obesity, unspecified; Z68.36 Body mass index [BMI] 36.0-36.9, adult; R94.31 Abnormal electrocardiogram [ECG] [EKG]; Z79.899 Other long term (current) drug therapy; Z82.49 Family history of ischemic heart disease and other diseases of the circulatory system
CPT/HCPCS: 36415; 71046; 80053; 80307; 83690; 83735; 84484; 85025; 85610; 85730; 92960; 93005; 96361; 96365; 96366; 96372; 96376; 99285; A9270; G0378; J1650; J2704; J7030

== ENCOUNTER 2023-07-20 09:25 | Outpatient (CLI) | payer OTHER, SELFPAY ==
--- NOTE | 2023-08-01 17:49 | WPDSLEEPSTUD ---
Sleep Study Date of Study: 07/20/23 Ordering Provider: Marc Soto APRN Interpreting Physician: Keara Temple MD Sleep Study Type: Polysomnogram Height: 1.63 m Weight: 92.533 kg Body Mass Index: 35.0 Neck Circumference (inches): 15 [place]: 15 Reason for Sleep Study Hypersomnolence; when she woke from anesthesia, she was told she had apnea, was told to get tested Sleep History Veronique Barnes is a 43-year-old female with hypersomnolence. She has had difficulty falling asleep and staying asleep since puberty. She wakes up with a racing heart and sometimes wakes having a panic attack. She uses clonazepam as needed for this. She has hypertension, atrial fibrillation with rapid ventricular response, anxiety, depression, memory issues, chronic fatigue. She has not taken any antidepressants for the last 2 years although she took them for the 20 years prior. Her reports that she has had mild snoring for the last year. She rarely awakens from sleep short of breath. She wakes at night with heartburn, belching or coughing.??She occasionally snores, occasionally snores loudly enough that others complain. She never has trouble sleeping when she has a cold. She wakes up gasping for breath during the night. She frequently never has breathing problems at night. She occasionally sweats excessively at night. She rarely notices her heart pounding or beating irregularly during the night. She frequently falls asleep during the day. She occasionally falls asleep involuntarily, although she never falls asleep while driving. She occasionally experiences loss of muscle tone with strong emotion. She never feels paralyzed on waking or falling asleep. She never experiences vivid dreams upon waking or falling asleep. She rarely feels afraid of going to sleep. She frequently has nightmares. She occasionally recalls her dreams. She frequently has thoughts racing through her mind. She occasional feels sad or depressed. She constantly feels anxiety. She rarely notices parts of her body jerk. She never kicks during the night. She rarely feels crawling or aching feelings in her legs. She frequently feels leg pain at night. She occasionally has morning jaw pain, and rarely grinds her teeth at night. She frequently feels bothered by pain during the day, is occasionally awakened by pain during the night. She constantly wakes up feeling stiff in the morning, occasionally wakes feeling sore or achy in the morning. She constantly awakens with pain in her neck, spine, or joints. Normal bedtime is between 10:30 to 11:30 p.m., falling asleep within 30 minutes but sometimes taking up to 90 minutes to fall asleep. Sometimes, she awakens at night. Her sleep history per Marc Soto APRN indicates that she may wake up between 4-8 times during the night, mostly for unclear reasons. She only goes to the bathroom once at night, at most. If she wakes in the night, she may read. She estimates needing 30 minutes but up to 2 hours until she returns to sleep. Her normal wake time is 6:30 a.m.., wakes by 7:30 on the weekends. She is not sure how many hours of sleep she gets at night. She takes naps in the afternoon or evening. A short nap lasting 10-15 minutes is not refreshing. She is usually drowsy for 3 hours or longer. She feels better in the evening compared to the any other time of day. She wakes up feeling not completely refreshed. Habits:??Tobacco: Prior smoker, quit 16 years ago Caffeine: None. Alcohol: None Recreational substances: none PMFSH Past Medical History Medical History Anxiety Arthritis Eugene's cyst of knee Depression History of endometrial biopsy 12/09/2022 Hypertension Migraine Thyroid disease Surgical History Surgical History History of cholecystectomy History of orthopedic surgery tibia and fibula repair right leg F
[2023-08-04 11:28] VITALS: BMI 35.0
== END 2023-07-21 07:14 | disposition home or self-care (01) ==
LOC: ANHCSM 09:37
PROVIDERS: PCP Physician Assistant; Visit Provider Nurse Practitioner Family
DX: G47.00 Insomnia, unspecified (principal); G47.10 Hypersomnia, unspecified
CPT/HCPCS: 95810

== ENCOUNTER 2023-11-21 01:35 | Day surgery (SDC) | payer OTHER, SELFPAY ==
[2023-11-09 10:54] VITALS: BMI 36.1
[2023-11-21 06:19] VITALS: BP 128/83; PULSE 78; RESP 16; TEMP 36.4; O2SAT 100; BMI 37.0
[2023-11-21] MEDS: LACTATED RINGERS 1,000 ML 150 ML IV CONT (06:30)
--- NOTE | 2023-11-21 07:24 | WPDANESEPPF ---
Anes - Initial Pre Proc Eval Procedure: Operation Date: 11/21/23 07:30 Proposed Procedures p Esophagogastroduodenoscopy - George Steiner MD Date/Time: 11/21/23 07:24 Surgeon: George Steiner MD Pre Op Diagnosis: Dysphagia, GERD w/o esophagitis Patient Data Age: 43 Gender: F Height: 1.63 m Weight: 98 kg Last Vital Signs Temp 97.6 F 11/21/23 06:19 Pulse 78 11/21/23 06:19 Resp 16 11/21/23 06:19 BP 128/83 11/21/23 06:19 Pulse Ox 100 11/21/23 06:19 O2 Del Method Room Air 11/21/23 06:19 Allergies Allergy/AdvReac Type Severity Reaction Status Date / Time No Known Allergies Allergy Verified 11/21/23 06:17 Home Medications Medication Instructions Recorded Confirmed Type cholecalciferol (vitamin D3) 50 50 mcg PO DAILY 12/23/22 11/21/23 History mcg (2,000 unit) capsule mecobalamin (vitamin B12) 500 mcg 500 mcg PO DAILY 12/23/22 11/21/23 History chewable tablet metoprolol succinate 50 mg 50 mg PO QAM #30 tabs 04/22/23 11/21/23 Rx tablet,extended release 24 hr esomeprazole magnesium 40 mg 40 mg PO BID #60 caps 10/21/23 11/21/23 Rx capsule,delayed release drospirenone (contraceptive) 4 mg 1 tablet PO DAILY #84 tabs 11/15/23 11/21/23 Rx (28) tablet (Slynd) Patient hx anesthesia problems: none Family hx anesthesia problems: none Results Review: All pre-operative results and documents have been reviewed as part of the pre-operative evaluation. [facility] Past Medical History Medical History (Updated 11/15/23 @ 09:21 by Liane Ramos MA) A-fib Anxiety Arthritis Eugene's cyst of knee Depression History of endometrial biopsy 12/09/2022 Hypertension Migraine Thyroid disease Surgical History Surgical History History of cholecystectomy History of orthopedic surgery tibia and fibula repair right leg Family History Family History Father Congestive heart failure Heart disease Hypertension Cerebrovascular accident Sibling Alcoholism Grandparent Diabetes mellitus Alcoholism Social History Social History Smoking status: Never smoker Second hand tobacco smoke exposure: No Smoking end date: 05/02/07 Alcohol intake: never Substance use: never Substance use type: does not use Do You Feel Safe in your Home?: Yes Lack of Transportation: No Lack of Food: Never True Current Housing: I Have Housing Concerned About Future Housing: No Difficulty Paying Gas/Electric Bills: No Difficulty Paying for Meds: No Currently Unemployed: No Education: High School Diploma/GED Difficulty w/ Childcare or Family Care: No Living arrangements: with family Occupation/Education: occupation Additional occupation/education comments: stay at home mom Gender identity (if verbalized by the patient): Female Sexual Orientation (if Verbalized by the Patient): Straight or Heterosexual Spiritual care concerns: No Anes - Eval Final PreProcedure Day of Procedure 11/21/23 07:24 Patient weight: obese Heart: regular rate and rhythm Lungs: clear to auscultation Airway: Mallampati scale class II Neurological: alert and oriented Last oral intake: >/= 8 hours ASA classification: III Emergent: no Anesthetic plan: proceed Anesthesia type and monitoring: general GIVS and standard monitoring Results Review: All pre-operative results and documents have been reviewed as part of the pre-operative evaluation. Informed Consent: The patient's anesthetic plan and its attendant risks and benefits were discussed with the patient/family/POA. Questions were solicited and answers provided to the satisfaction of the patient/family/POA.
--- NOTE | 2023-11-21 07:26 | PM.HPGS ---
History of Present Illness History of Present Illness Consent: Risks, benefits, and alternatives have been discussed and questions answered. Patient agrees to proceed with procedure. Chief complaint: Dysphagia, GERD w/o esophagitis Narrative: Veronique Barnes is a 43 year old female here for egd with gerd, recently started on esomeprazole that is helping, had egd in 2017 Review of Systems Review of Systems: All systems reviewed & are unremarkable except as noted in HPI and below PMFSH Past Medical History Medical History (Updated 11/15/23 @ 09:21 by Liane Ramos MA) A-fib Anxiety Arthritis Eugene's cyst of knee Depression History of endometrial biopsy 12/09/2022 Hypertension Migraine Thyroid disease Surgical History Surgical History History of cholecystectomy History of orthopedic surgery tibia and fibula repair right leg Family History Family History Father Congestive heart failure Heart disease Hypertension Cerebrovascular accident Sibling Alcoholism Grandparent Diabetes mellitus Alcoholism Social History Social History Smoking status: Never smoker Second hand tobacco smoke exposure: No Smoking end date: 05/02/07 Alcohol intake: never Substance use: never Substance use type: does not use Do You Feel Safe in your Home?: Yes Lack of Transportation: No Lack of Food: Never True Current Housing: I Have Housing Concerned About Future Housing: No Difficulty Paying Gas/Electric Bills: No Difficulty Paying for Meds: No Currently Unemployed: No Education: High School Diploma/GED Difficulty w/ Childcare or Family Care: No Living arrangements: with family Occupation/Education: occupation Additional occupation/education comments: stay at home mom Gender identity (if verbalized by the patient): Female Sexual Orientation (if Verbalized by the Patient): Straight or Heterosexual Spiritual care concerns: No Meds Home Medications and Allergies Home Medications Medication Instructions Recorded Confirmed Type cholecalciferol (vitamin D3) 50 50 mcg PO DAILY 12/23/22 11/21/23 History mcg (2,000 unit) capsule mecobalamin (vitamin B12) 500 mcg 500 mcg PO DAILY 12/23/22 11/21/23 History chewable tablet metoprolol succinate 50 mg 50 mg PO QAM #30 tabs 04/22/23 11/21/23 Rx tablet,extended release 24 hr esomeprazole magnesium 40 mg 40 mg PO BID #60 caps 10/21/23 11/21/23 Rx capsule,delayed release drospirenone (contraceptive) 4 mg 1 tablet PO DAILY #84 tabs 11/15/23 11/21/23 Rx (28) tablet (Slynd) Allergies Allergy/AdvReac Type Severity Reaction Status Date / Time No Known Allergies Allergy Verified 11/21/23 06:17 Vital Signs Vital Signs - 24 hr 11/21/23 06:19 Temperature 97.6 F Pulse Rate 78 Respiratory Rate 16 Blood Pressure 128/83 Pulse Oximetry 100 Oxygen Delivery Room Air Exam Const: General: comfortable and no acute distress HENMT: Face/Nose/Sinus: Normal nares present Eyes: General: appearance normal, both eyes and all related structures Neck: Neck: no JVD Resp: Auscultation: clear to auscultation bilaterally Cardio: Rate: regular rate Rhythm: regular rhythm GI: Inspection: non-distended GI Palp: Yes Soft to palpation Skin: General skin exam: normal color Neuro: General: gait normal Speech: normal speech Extrem: General: normal to inspection Psych: Mental Status: mental status grossly normal Assessment and Plan Assessment and plan (1) Gastroesophageal reflux disease: Code(s): K21.9 - Gastro-esophageal reflux disease without esophagitis Status: Acute Assessment and Plan: egd with bx recently started on ppi
[2023-11-21] MEDS: BENZOCAINE (*SP) 60 ML SPRAY CAN (HURRICAINE) 1 SPRAY MUCOUS MEM (07:35)
[2023-11-21 07:41] VITALS: BP 134/84; PULSE 84; RESP 20; O2SAT 99
[2023-11-21 07:51] VITALS: BP 131/80; PULSE 82; RESP 18; O2SAT 100
[2023-11-21 08:01] VITALS: BP 138/88; PULSE 75; RESP 21; O2SAT 100
== END 2023-11-21 08:10 | disposition home or self-care (01) ==
PROVIDERS: PCP Nurse Practitioner Family; Referring Provider Nurse Practitioner Family; Visit Provider Internal Medicine Gastroenterology
PROC: 0DJ08ZZ Inspection of Upper Intestinal Tract, Via Natural or Artificial Opening Endoscopic (ICD-10-PCS; CPT 43235; principal; 2023-11-21 07:30)
DX: K21.9 Gastro-esophageal reflux disease without esophagitis (principal); I48.91 Unspecified atrial fibrillation; F32.A Depression, unspecified; F41.9 Anxiety disorder, unspecified; I10 Essential (primary) hypertension; E07.9 Disorder of thyroid, unspecified; E66.9 Obesity, unspecified; Z68.37 Body mass index [BMI] 37.0-37.9, adult; Z98.890 Other specified postprocedural states; Z90.49 Acquired absence of other specified parts of digestive tract; Z82.49 Family history of ischemic heart disease and other diseases of the circulatory system
CPT/HCPCS: 43239; 88305; J2704; J7120

== ENCOUNTER 2024-04-19 11:57 | Outpatient (CLI) | payer OTHER, SELFPAY ==
--- NOTE | ~2024-04-19 | MM_ITS ---
EXAMINATION: MM screening tobias BI w surinder HISTORY: Screening TECHNIQUE: Craniocaudal and mediolateral oblique 3-D tomosynthesis images were obtained and synthetic 2-D images were generated. CAD analysis was submitted and interpreted. COMPARISON: Comparison to multiple prior studies sequentially, with oldest reviewed study dated 01/30. BREAST PARENCHYMAL COMPOSITION: Dense: The breasts are heterogeneously dense, which may obscure small masses FINDINGS: There are developing asymmetries in the upper outer quadrant of the right breast. The left breast is stable without evidence for malignancy. IMPRESSION: 1. Developing right breast asymmetries. 2. Additional mammographic views and possible breast ultrasound are recommended. BI-RADS Category 0: Incomplete: Needs additional imaging evaluation. Reviewed, dictated and finalized at location B. SROOM TECHNOLOGY COACH IMPRESSION: 1. Developing right breast asymmetries. 2. Additional mammographic views and possible breast ultrasound are recommended . BI-RADS Category 0: Incomplete: Needs additional imaging evaluation.
== END 2024-04-19 11:58 | disposition home or self-care (01) ==
LOC: MICIMG 11:57
PROVIDERS: PCP Nurse Practitioner Family; Visit Provider Obstetrics & Gynecology
DX: Z12.31 Encounter for screening mammogram for malignant neoplasm of breast (principal); R92.8 Other abnormal and inconclusive findings on diagnostic imaging of breast
CPT/HCPCS: 77063; 77067

== ENCOUNTER 2024-05-09 08:45 | Outpatient (CLI) | payer OTHER, SELFPAY ==
--- NOTE | ~2024-05-09 | MMUS_ITS ---
EXAMINATION: MM diagnostic tobias RT w surinder, US breast RT limited HISTORY: Follow-up right breast asymmetries. TECHNIQUE: Additional 3-D tomosynthesis images of the right breast were performed and synthetic 2-D i mages were generated. CAD analysis was submitted and interpreted. High resolution Limited right breas t ultrasound was performed. COMPARISON: Comparison to multiple prior studies sequentially, with oldest reviewed study dated 01/30. BREAST PARENCHYMAL COMPOSITION: Dense: The breasts are heterogeneously dense, which may obscure small masses FINDINGS: MAMMOGRAPHIC FINDINGS: There are persistent asymmetries in the upper aspect of the right breast, although no discrete mass o r architectural distortion is identified. No suspicious calcifications. ULTRASOUND: Limited right breast ultrasound: At 8:00, 5 cm from the nipple there is a 9 mm cyst. At 8:00, 7 cm from the nipple there is a minimal ly complicated 9 mm cyst. At 12:00, 4 cm from the nipple there is a 11 mm cyst. No suspicious masses to suggest malignancy. IMPRESSION: 1. No evidence for malignancy in the right breast. Benign findings. 2. Routine yearly screening mammogram and regular clinical breast examination are recommended. BI-RADS Category 2: Benign finding(s). Reviewed, dictated and finalized at location [] L WORD PROCESSOR IMPRESSION: 1. No evidence for malignancy in the right breast. Benign findings. 2. Routine yearly screening mammogram and regular clinical breast examination a re recommended. BI-RADS Category 2: Benign finding(s).
== END 2024-05-09 08:46 | disposition home or self-care (01) ==
PROVIDERS: PCP Nurse Practitioner Family; Visit Provider Obstetrics & Gynecology
DX: N64.89 Other specified disorders of breast (principal)
CPT/HCPCS: 76642; 77061; 77065; G0279